=== PATIENT | female | born 1995 ===

== ENCOUNTER 2021-09-24 04:35 | Inpatient (IN) ==
[2021-09-24] MEDS ORDERED: ONDANSETRON 4 MG/2 ML VIAL IV PRN (05:21)
[2021-09-24] MEDS ORDERED: MEPERIDINE 50 MG/1 ML VIAL IV PRN (05:21)
[2021-09-24] MEDS ORDERED: BUTORPHANOL 2 MG/ML VIAL IV PRN (05:21)
[2021-09-24] MEDS ORDERED: LACTATED RINGERS 500 ML IV PRN (05:21)
[2021-09-24] MEDS ORDERED: LACTATED RINGERS 1,000 ML IV SCH (05:30)
[2021-09-24 05:48] LABS: Basophils % 0.3 % (0.0-0.8); Eosinophils # 0.1 10*3/uL (0.0-0.87); Hematocrit 39.1 VOL% (35.7-47.0); Immature Granulocytes % 0.5 %; Immature Granulocytes Absolute 0.06 #; Lymphocytes # 2.2 10*3/uL (1.4-4.0); Lymphocytes % 18.7 % (21.3-54.2); Mean Corpuscular HGB Conc 33.2 GM/DL (32-36); Mean Corpuscular Volume 87.9 FL (87-102); Mean Platelet Volume 9.3 FL (9.6-12.0); Monocytes % 10.2 % (1.7-12.7); Neutrophils % 69.3 % (38.7-73.9); Platelet Count 285 T/CUMM (130-400); Red Blood Count 4.45 MC/CUMM (3.8-5.5); Red Cell Distribution Width 12.3 % (9.3-17.3); White Blood Count 11.6 T/CUMM (4-12)
[2021-09-24] MEDS ORDERED: AMPICILLIN INJ 2,000 MG in SODIUM CHLORIDE 0.9% 100 ML IV ONE (06:07)
[2021-09-24] MEDS: OXYTOCIN/LR 20 UNIT/1,000 ML BAG IV SCH ×2 (06:17→19:08)
[2021-09-24] MEDS ORDERED: AMPICILLIN INJ 1,000 MG in SODIUM CHLORIDE 0.9% 100 ML IV SCH (10:30)
[2021-09-24] MEDS ORDERED: CARBOPROST TROMETHAMINE 250 MCG/ML AMP IM ONE (12:42)
[2021-09-24] MEDS ORDERED: miSOPROStoL 200 MCG TABLET ONE (12:42)
[2021-09-24] MEDS ORDERED: METHYLERGONOVINE 0.2 MG/1 ML AMP ONE (12:42)
[2021-09-24] MEDS ORDERED: LIDOCAINE 1% 50 ML VIAL ONE (12:43)
[2021-09-24 14:03] LABS: Cord Venous Blood PCO2 53.1 MMHG; Cord Venous Blood PO2 28.2
[2021-09-25] MEDS ORDERED: RHO(D) IMMUNE GLOBULIN 300 MCG SYRINGE IM ONE (00:33)
[2021-09-25] MEDS ORDERED: HYDROCORTISONE 2.5% RECTAL CREAM 30 GM TUBE TOP PRN (00:33)
[2021-09-25] MEDS ORDERED: IBUPROFEN 800 MG TABLET PO PRN (00:33)
[2021-09-25] MEDS ORDERED: WITCH HAZEL PADS 100/JAR TOP PRN (00:33)
[2021-09-25] MEDS ORDERED: MEASLES/MUMPS/RUBELLA VACCINE 0.5 ML VIAL SUBCUT ONE (00:33)
[2021-09-25] MEDS ORDERED: DIPH/TET/ACEL PERT BOOSTER VACCINE 0.5 ML VIAL IM ONE (00:33)
[2021-09-25] MEDS ORDERED: BENZOCAINE 20%/MENTHOL 0.5% SPRAY 56 GM CAN TOP PRN (00:33)
[2021-09-25] MEDS ORDERED: LANOLIN 50% CREAM 0.3 OZ TUBE TOP PRN (00:33)
[2021-09-25] MEDS ORDERED: oxyCODONE/ACETAMINOPHEN 5-325 MG TABLET PO PRN ×2 (00:33)
[2021-09-25] MEDS ORDERED: OXYTOCIN/LR 20 UNIT/1,000 ML BAG IV ONE (00:33)
[2021-09-25] MEDS ORDERED: BISACODYL 10 MG SUPP RECTAL PRN (00:33)
[2021-09-25] MEDS ORDERED: ACETAMINOPHEN 325 MG TABLET PO PRN (00:33)
[2021-09-25 06:30] LABS: Basophils % 0.3 % (0.0-0.8); Eosinophils # 0.1 10*3/uL (0.0-0.87); Eosinophils % 0.3 % (0.00-10.9); Hematocrit 34.3 VOL% (35.7-47.0); Hemoglobin 11.4 GM/DL (12.0-16.0); Immature Granulocytes % 0.4 %; Immature Granulocytes Absolute 0.07 #; Lymphocytes # 2.1 10*3/uL (1.4-4.0); Lymphocytes % 13.1 % (21.3-54.2); Mean Corpuscular HGB Conc 33.2 GM/DL (32-36); Mean Corpuscular Volume 88.2 FL (87-102); Mean Platelet Volume 9.8 FL (9.6-12.0); Monocytes % 9.8 % (1.7-12.7); Neutrophils % 76.1 % (38.7-73.9); Platelet Count 284 T/CUMM (130-400); Red Blood Count 3.89 MC/CUMM (3.8-5.5); Red Cell Distribution Width 12.3 % (9.3-17.3); White Blood Count 15.9 T/CUMM (4-12)
[2021-09-25] MEDS: DOCUSATE SODIUM 100 MG CAPSULE PO SCH ×2 (08:54→21:49)
[2021-09-26] MEDS ORDERED: atenoloL 25 MG TABLET PO SCH (09:00)
[2021-09-26] MEDS ORDERED: INFLUENZA VIRUS VACCINE 0.5 ML SYRINGE IM ONE (10:34)
[2021-09-26] MEDS: DOCUSATE SODIUM 100 MG CAPSULE PO SCH (11:22)
[2021-09-26 13:14] VITALS: BP 124/64
== END 2021-09-26 15:50 | disposition home or self-care (01) | DRG 560 ==
LOC: N.LD 04:35 → N.OB 19:55
PROVIDERS: ADMIT Obstetrics & Gynecology; ATTEND Obstetrics & Gynecology